=== PATIENT | female | born 1965 | race Caucasian/White ===

== ENCOUNTER → 2018-05-29 07:30 | Outpatient (CLI) | payer OTHER, SELFPAY ==
[2018-05-29 07:51] LABS: Abs Immature Grans 0.01 k/cumm (0.0-0.09); Absolute Basophil Count 0.03 k/cumm (0.0-0.2); Absolute Eosinophil Count 0.16 k/cumm (0.0-0.7); Absolute Monocyte Count 0.53 k/cumm (0.11-0.7); Absolute Neutrophil Count 2.24 k/cumm (1.2-6.7); Basophils % 0.6; Eosinophils % 3.2; HCT 39.9 % (36.0-46.0); HGB 13.5 g/dL (12.0-15.5); Immature Grans % 0.2; Lymphocytes % 41.4; Mean Corp. HGB Concentration 33.8 g/dL (32.0-36.0); Mean Corpuscular Hemoglobin 30.1 pg (27.0-33.0); Mean Corpuscular Volume 89.1 fL (80-95); Mean Platelet Volume 10.6 fL (8.0-11.0); Monocytes % 10.5; Neutrophils % 44.1; Platelet Count 248 x1000/uL (130-400); RBC 4.48 m/cumm (4.00-5.20); RBC Distribution Width 13.2 % (11.7-14.6); White Blood Cell Count 5.07 k/cumm (4.4-10.8)
[2018-05-29 09:12] LABS: ALT 27 U/L (12-78); AST 15 U/L (15-37); Albumin 3.7 g/dL (3.4-5.0); Alkaline Phosphatase 113 U/L (46-116); Anion Gap 6.1 mmol/L (3-11); BUN 15 mg/dL (7-18); Bilirubin, Total 0.3 mg/dL (0.2-1.0); CO2 31.9 mmol/L (21.0-32.0); CREATININE 0.88 mg/dL (0.55-1.02); Calcium 8.8 mg/dL (8.5-10.1); Chloride 106 mmol/L (98-107); Cholesterol 210 mg/dL (50-200); Glucose 94 mg/dL (70-100); HDL Cholesterol 21 mg/dL (40-60); LDL CHOLESTEROL 138 mg/dL (<100); Potassium 4.6 mmol/L (3.5-5.1); Sodium 144 mmol/L (136-145); Total Protein 6.9 g/dL (6.4-8.2); Triglyceride 83 mg/dL (30-150)
== END ==
PROVIDERS: PCP Student in an Organized Health Care Education/Training Program; Visit Provider Student in an Organized Health Care Education/Training Program
DX: E03.9 Hypothyroidism, unspecified (principal); N95.0 Postmenopausal bleeding; R03.0 Elevated blood-pressure reading, without diagnosis of hypertension; Z13.220 Encounter for screening for lipoid disorders
CPT/HCPCS: 36415; 80053; 80061; 83721; 84443; 85025

== ENCOUNTER 2018-09-10 00:26 | Outpatient (CLI) | payer OTHER, SELFPAY ==
--- NOTE | 2018-09-10 16:00 | DI.MAMMO_ITS ---
SYMPTOMS/DIAGNOSIS: SCREENING, Z12.31 MAMMOGRAM: Mammograms were interpreted according to the usual protocol including computer analysis with CAD system, tomosynthesis and C view imaging. The breasts are heterogeneously dense. No dominant mass or clumped microcalcification is identified in either breast. Current examination is compared with the previous examinations including August 2016 and there has been no gross interval change in appearance in comparison with the previous studies. CONCLUSION: No specific evidence of malignancy at this time. Routine screening examinations are suggested at yearly intervals due to the family history of breast carcinoma. Category 1, breast density category C. MQSA ASSESSMENT OF FINDINGS: Negative. Category 1. Patient will receive a letter notifying them of these results. Bi-RADS category C. The breasts are heterogeneously dense, which may obscure small masses.
== END 2018-09-10 00:46 ==
PROVIDERS: PCP Student in an Organized Health Care Education/Training Program; Visit Provider Student in an Organized Health Care Education/Training Program
DX: Z12.31 Encounter for screening mammogram for malignant neoplasm of breast (principal)
CPT/HCPCS: 77063; 77067

== ENCOUNTER 2019-03-07 10:26 | Outpatient (CLI) | payer OTHER, SELFPAY ==
--- NOTE | 2019-03-07 08:50 | DI.RAD_ITS ---
SYMPTOM/DIAGNOSIS: CONT'D COUGH, W/BACK PAIN - ? WALKING PNEUMONIA. M54.9 PA AND LATERAL CHEST: 03/07 The heart is normal in size. The lungs are clear. The mediastinal structures and pleura appear intact. CONCLUSION: Normal chest.
== END 2019-03-07 10:46 ==
PROVIDERS: PCP Student in an Organized Health Care Education/Training Program; Visit Provider Student in an Organized Health Care Education/Training Program
DX: M54.9 Dorsalgia, unspecified (principal); R05 Cough
CPT/HCPCS: 71046

== ENCOUNTER 2019-03-28 01:28 | Outpatient (CLI) | payer OTHER, SELFPAY ==
--- NOTE | 2019-03-28 15:22 | DI.MAMMO_ITS ---
SYMPTOM/DIAGNOSIS: SCREENING, Z12.31, FAMILY H/O BREAST CA MAMMOGRAMS: Mammograms were interpreted according to the usual protocol including computer analysis with CAD system, tomosynthesis and C view imaging. The breasts are heterogeneously dense. No dominant mass or clumped microcalcification is identified in either breast. The current examination is compared with previous examinations including 08/2018 and there has been no gross interval change in appearance in comparison with the previous studies. CONCLUSION: No specific evidence of malignancy at this time. Routine screening examinations examinations are suggested at yearly intervals due to the family history of breast carcinoma. Category 1. Breast density, category C. MQSA ASSESSMENT OF FINDINGS: Negative. Category 1. Patient will receive a letter notifying them of these results. Bi-RADS category C. The breasts are heterogeneously dense, which may obscure small masses.
== END 2019-03-28 01:48 ==
PROVIDERS: PCP Student in an Organized Health Care Education/Training Program; Visit Provider Student in an Organized Health Care Education/Training Program
DX: Z12.31 Encounter for screening mammogram for malignant neoplasm of breast (principal); Z80.3 Family history of malignant neoplasm of breast
CPT/HCPCS: 77063; 77067

== ENCOUNTER 2019-04-15 08:04 | Outpatient (CLI) | payer OTHER, SELFPAY ==
[2019-04-15 10:00] LABS: Anion Gap 7.5 mmol/L (3-11); CO2 28.5 mmol/L (21.0-32.0); CREATININE 0.76 mg/dL (0.55-1.02); Calcium 9.2 mg/dL (8.5-10.1); Calculated LDL 106; Chloride 106 mmol/L (98-107); Cholesterol 162 mg/dL (50-200); Glucose 91 mg/dL (70-100); HDL Cholesterol 44 mg/dL (40-60); Potassium 4.5 mmol/L (3.5-5.1); Sodium 142 mmol/L (136-145); Triglyceride 62 mg/dL (30-150)
[2019-04-15 10:25] LABS: TSH (W/Ref FT4) 0.23 uIU/mL (0.358-3.74)
[2019-04-15 10:48] LABS: FREE T4 1.31 ng/dL (0.76-1.46)
[2019-04-15 15:16] LABS: BUN 20 mg/dL (7-18)
== END 2019-04-15 08:24 ==
PROVIDERS: PCP Student in an Organized Health Care Education/Training Program; Visit Provider Student in an Organized Health Care Education/Training Program
DX: Z13.220 Encounter for screening for lipoid disorders (principal); Z79.1 Long term (current) use of non-steroidal anti-inflammatories (NSAID); E03.9 Hypothyroidism, unspecified
CPT/HCPCS: 36415; 80048; 80061; 83721; 84439; 84443

== ENCOUNTER 2020-03-03 09:04 | Emergency (ER) | payer OTHER, SELFPAY ==
--- NOTE | 2020-03-03 09:06 | W.ED.GENAD ---
Discharge Plan Disposition Patient Disposition: HOME Condition: Good Discharge Details Chief Complaint: Chest Pain Clinical Impression: Chest pain, Iliotibial band tendonitis Primary Care Provider: Lyric Correia ED Provider: Lashae Torres Home Meds and New Rx's Prescriptions: Continued levothyroxine 137 mcg tablet 137 mcg PO DAILY Qty: 90 RF: 3 citalopram 10 mg tablet 10 mg PO DAILY Qty: 90 RF: 3 Discharge Instructions Instructions: Chest Pain (ED), Tendinitis (ED) Additional Instructions: Encourage water intake. Please begin the baby aspirin as discussed. You were labs and imaging are reassuring here today without any evidence of emergent pathology. Please keep your upcoming appoint with your primary care. She is aware of this plan today. Your pain in your right thigh is most consistent with iliotibial band tendinitis, please perform the stretching as discussed. Attached is a referral for physical therapy. If you develop fever/chills, increased pain, shortness of breath and difficulty breathing, increased chest pain or other new/worsening symptom please seek care urgently once again. Stand Alone Forms: Physical Therapy Referral Referrals: Lyric Correia DO [Primary Care Provider] - Medical Decision Making Patient is a pleasant 54-year-old female presenting today with chief complaint of chest pain. She reports that she awoke this morning at 4 AM with substernal chest pain. States the pain was nonradiating and felt like a pressure. She states that it was worse with movement such as going to a sitting position. She denied any shortness of breath, nausea, rating pain. No pain in her back. Denies any GI upset. She has not had pain like this historically. States that the pain lasted approximately 45 minutes and she is able to return to sleep. She states that she subsequently woke again around 630 with similar discomfort. Patient is currently asymptomatic. She denies any cardiac history. Past medical history is significant for melanoma, hypothyroidism, thyroiditis. Patient is currently on levothyroxine and citalopram. Patient states that she has been very sedentary recently. 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 She states that she has not been able to get away from her desk. She is also endorsing right lateral thigh pain. She reports the pain began approximately 1 month ago. States that it can radiate down to the calf. She is not had pain like this previously. She denies any trauma. Denies any numbness or tingling. No history of DVT or clotting disorders. States the pain is worse when she is laying down at night. Patient also reports that she is been having difficulty sleeping associated with increased stress. On exam, the patient is resting comfortably. She has normal cardiac and pulmonary exam. 2+ distal pulses. Abdomen is benign. She does have an area of firmness along the lateral thigh consistent with area of discomfort. She does have a small area of ecchymosis which she states that this was from running into something the other day and came on after the initial discomfort in the thigh. At this time,. History is most concerning for increased stress and fatigue. I have considered thyroid etiologies although patient denies any palpitationson past medical history. ACS is on the differential although patient's heart score is 1 with initial troponin pending. I did consider PE particular the patient's leg discomfort potentially stemming from a DVT. Patient is not tachycardic or hypoxic. She is not had any shortness of breath so I do find PE less likely. She is not had any radiating pain tearing discomfort or persistent discomfort to suggest potential dissection. Considered pulmonary, cardiac, GI source versus other. EKG was reviewed by Dr. Bazzi. Patient is normal sinus rhythm with a rate of 74 with no acute ischemic changes noted. Chest x-ray was reviewed by radiology: FINDINGS: MEDIASTINUM: Normal. HEART: Normal. PULMONARY VASCULATURE: Normal. LUNGS: Clear. PLEURAL SPACE: No pleural effusion or pneumothorax. BONE:Normal. IMPRESSION: No acute pulmonary findings. Labs were reviewed with no acute abnormality noted. D-dimer is within normal limits. No electrolyte abnormalities. Initial troponin is less than 0.05. Will obtain second. TSH within normal limits. US reviewed by radiologist: FINDINGS: The right common femoral, femoral and popliteal veins demonstrate normal compressibility, augmentation, and color Doppler. The posterior tibial veins are patent. No saphenous vein thrombosis or other superficial venous thrombosis is seen. No hematoma or Silva's cyst is seen. Normal appearing groin lymph nodes are seen. IMPRESSION: Negative right lower extremity ultrasound. No evidence of DVT. Repeat troponin remains negative. Patient has f/u appointment on Sunday, will touch base with PCP. I am concerned regarding patients stress and sleep habits. She and I did discuss this. We also discussed daily baby ASA as she has been very sedentary. She has tolerated this well historically so I did recommend that during this time she use this. Patient and I discussed return precautions. I was able to speak with them encouraged to have the patient's primary care physician and expressed my concerns and have that they can have further discussion at her upcoming appointment on Sunday. I reexamined the patient's lower extremity after the DVT study and I am concerned however I discontinue medicine at this time. We will refer to physical therapy. All of her questions or concerns were addressed she is agreement with plan. HPI General Mode of arrival: ambulatory. Date/Time Provider Initiated Documentation: 03/03/20 09:06. Limitations to Documentation: no limitations. Information obtained by: patient and RN notes reviewed. History of Present Illness 54 year old F presents to the emergency department with the chief complaint of chest pain, described as moderate, with intensity rated at 5. Quality is described as other (pressure), and is localized to the chest. Patient reports no radiation. Patient started experiencing this hour(s) (first episode at 0400) and it has been now resolved. Immobilization improves symptom(s), Movement worsens symptoms . Patient notes no other symptoms.. Patient did receive the following treatments prior to arrival, none Related Data Home Medications Medication Instructions Recorded Confirmed levothyroxine 137 mcg tablet 137 mcg PO DAILY #90 tab-cap 03/31/19 03/03/20 citalopram 10 mg tablet 10 mg PO DAILY #90 tab 10/30/19 03/03/20 Previous Rx's Medication Instructions Recorded levothyroxine 137 mcg tablet 137 mcg PO DAILY #90 tab-cap 03/31/19 citalopram 10 mg tablet 10 mg PO DAILY #90 tab 10/30/19 Allergies Allergy/AdvReac Type Severity Reaction Status Date / Time No Known Drug Allergies Allergy Verified 03/03/20 09:15 Review of Systems Constitutional Constitutional: Reports as per HPI, Denies chills, Denies fever(s), Denies headache(s), Denies lethargy and Denies poor appetite Eyes Eyes: Denies change in vision ENT Ears, Nose, Mouth, and Throat: Denies dizziness and Denies headache(s) Cardiovascular Cardiovascular: Reports as per HPI, Denies dyspnea and Denies dyspnea on exertion Respiratory Respiratory: Reports as per HPI, Denies chest congestion, Denies cough, Denies pain on inspiration, Denies pain with cough, Denies dyspnea, Denies dyspnea on exertion and Denies wheezing Gastrointestinal Gastrointestinal: Reports as per HPI, Denies abdominal pain, Denies diarrhea, Denies nausea and Denies vomiting Musculoskeletal Musculoskeletal: Reports as per HPI and Denies back pain Integumentary/Breasts Skin/Breast: Reports as per HPI and Denies rash Neurologic Neurologic: Reports as per HPI, Denies dizziness and Denies headache(s) Allergic/Immunologic Allergic/Immunologic: Denies wheezing [facility] Medical History Depression 2002 Leo's thyroiditis 1991 Surgical History Fracture, Open Treatment 1999 with hardware intact/leg Skin Cancer Removal MELANOMA ON THE ARM Thyroidectomy 1992 secondary to Leo Family History Mother Hyperlipidemia Neoplasm BREAST Father Diabetes Heart disease Grandmother Neoplasm BREAST Maternal Uncle Heart disease Maternal Aunt Neoplasm BREAST Sister No problems noted. Brother No problems noted. Brother No problems noted. Brother No problems noted. Grandfather Stroke Grandfather No problems noted. Grandmother No problems noted. Son No problems noted. Daughter No problems noted. Social History Smoking/Tobacco Use Status: Never Alcohol Intake: current Alcohol Intake frequency: holidays/special occasions only Drug use: Never Substance use type: does not use Housing: house Number of Children: 2 current occupation: Finance at [employer] What type of physical activity do you participate in: none Seatbelt use: always Drive intox or ride w/intox superintendent drivers: No Working smoke detector in home: Yes Fire extinguisher in home: Yes Carbon monox detector in home: Yes Do you feel safe at home: Yes Do you feel safe in your relationship?: Yes Exam Const General: cooperative, healthy appearing, comfortable, no acute distress and well developed Nutritional Appearance: average body habitus and well nourished Orientation: alert, awake and oriented x3 HENMT Head: normal to inspection Ears: hearing grossly normal bilaterally Mouth: moist mucous membranes Chest Chest: normal inspection of the chest, normal palpation of entire chest wall and no crepitus Resp Effort & Inspection: normal respiratory effort, able to speak in complete sentences and no respiratory distress Auscultation: clear to auscultation bilaterally, no rales, no rhonchi and no wheezes Cardio Rate: regular rate Rhythm: regular rhythm Heart Sounds: S1 normal and S2 normal GI Inspection: normal to inspection, no edema and non-distended Palpation: soft, no hepatosplenomegaly, not firm, no guarding, not rigid and nontender Auscultation: normal bowel sounds Back/Spine/Pelvis Back: no CVA tenderness Thoracic/Lumbar Spine: thoracic and lumbar spine normal to inspection Skin General skin exam: no rashes or lesions noted Trauma: no lacerations or abrasions Neuro General: patient alert, patient awake and patient oriented x3 Cognition: normal cognition Speech: speech normal Gait: normal gait Extrem General: normal to inspection, capillary refill normal, no pedal edema, no calf tenderness and normal gait Psych Appearance: grossly normal and well kempt Mental Status: mental status grossly normal Speech and Movement: speech and movement normal
[2020-03-03 09:08] VITALS: BP 178/90; PULSE 85; RESP 16; TEMP 36.8; O2SAT 98
--- NOTE | 2020-03-03 09:15 | DI.RAD_ITS ---
EXAM: XR CHEST 2V PA LATERAL CLINICAL HISTORY: CP TECHNIQUE: 2D digital imaging was performed. COMPARISON: No exams were available for comparison FINDINGS: MEDIASTINUM: Normal. HEART: Normal. PULMONARY VASCULATURE: Normal. LUNGS: Clear. PLEURAL SPACE: No pleural effusion or pneumothorax. BONE:Normal. IMPRESSION: No acute pulmonary findings. DATA REPOSITORY: RADIATION DOSE DELIVERED:
--- NOTE | 2020-03-03 09:30 | DI.US_ITS ---
EXAM: US LOWER EXTREMITY VENOUS RT CLINICAL HISTORY: posterior calf/lateral thigh pain. TECHNIQUE: Right lower extremity venous ultrasound performed using grayscale, color-flow, and spectr al Doppler analysis. COMPARISON: No exams were available for comparison FINDINGS: The right common femoral, femoral and popliteal veins demonstrate normal compressibility, augmentatio n, and color Doppler. The posterior tibial veins are patent. No saphenous vein thrombosis or other s uperficial venous thrombosis is seen. No hematoma or Silva's cyst is seen. Normal appearing groin l ymph nodes are seen. IMPRESSION: Negative right lower extremity ultrasound. No evidence of DVT. DATA REPOSITORY:
[2020-03-03 09:47] LABS: Abs Immature Grans 0.01 k/cumm (0.0-0.09); Absolute Basophil Count 0.05 k/cumm (0.0-0.2); Absolute Lymphocyte Count 2.24 k/cumm (1.2-3.4); Absolute Monocyte Count 0.53 k/cumm (0.11-0.7); Absolute Neutrophil Count 2.09 k/cumm (1.2-6.7); Eosinophils % 3.9; HCT 40.8 % (36.0-46.0); HGB 13.8 g/dL (12.0-15.5); Immature Grans % 0.2 %; Lymphocytes % 43.8; Mean Corp. HGB Concentration 33.8 g/dL (32.0-36.0); Mean Corpuscular Hemoglobin 30.1 pg (27.0-33.0); Mean Corpuscular Volume 89.1 fL (80-95); Mean Platelet Volume 11.4 fL (8.0-11.0); Monocytes % 10.4; Neutrophils % 40.7; Platelet Count 296 x1000/uL (130-400); RBC 4.58 m/cumm (4.00-5.20); RBC Distribution Width 13.4 % (11.7-14.6); White Blood Cell Count 5.12 k/cumm (4.4-10.8)
[2020-03-03 09:57] LABS: ALT 27 U/L (14-59); AST 17 U/L (15-37); Albumin 3.8 g/dL (3.4-5.0); Alkaline Phosphatase 101 U/L (46-116); Anion Gap 9.2 mmol/L (3-11); BUN 16 mg/dL (7-18); Bilirubin, Total 0.3 mg/dL (0.2-1.0); CO2 27.8 mmol/L (21.0-32.0); CREATININE 0.81 mg/dL (0.55-1.02); Chloride 103 mmol/L (98-107); Glucose 93 mg/dL (74-106); Magnesium 1.8 mg/dL (1.8-2.4); Potassium 3.9 mmol/L (3.5-5.1); Sodium 140 mmol/L (136-145); Total Protein 7.5 g/dL (6.4-8.2)
[2020-03-03 10:01] LABS: Troponin I < 0.05 ng/Ml (<0.06)
[2020-03-03 10:03] LABS: PTT Activated 26.7 sec (21.0-31.4); Prothrombin Time 9.8 sec (9.3-11.0)
[2020-03-03 10:28] LABS: D-Dimer 233 ng/mlFEU (<500)
[2020-03-03 11:56] VITALS: BP 154/82; PULSE 60; RESP 18; TEMP 36.4; O2SAT 99
[2020-03-03 12:34] LABS: Troponin I < 0.05 ng/Ml (<0.06)
== END 2020-03-03 12:55 | disposition home or self-care (01) ==
PROVIDERS: Emergency Provider Physician Assistant; PCP Student in an Organized Health Care Education/Training Program
DX: R07.89 Other chest pain (principal); M76.31 Iliotibial band syndrome, right leg; Z73.3 Stress, not elsewhere classified
CPT/HCPCS: 36415; 80053; 93005; 99285; 71046; 83735; 84443; 84484; 85025; 85379; 85610; 85730; 93010; 93971

== ENCOUNTER 2020-03-30 02:27 | Outpatient (CLI) | payer OTHER, SELFPAY ==
--- NOTE | 2020-03-30 06:45 | DI.MAMMO_ITS ---
EXAM: MG MAMMO SCREENING CLINICAL HISTORY: screening,z12.39 TECHNIQUE: Mammograms were interpreted according to the usual protocol including computer analysis w [employer] CAD system, tomosynthesis and C-view imaging. COMPARISON: FINDINGS: The breasts are heterogeneously dense. No dominant mass or clumped microcalcification is identified in either breast. Current examination is compared with previous examinations including February 2019 and there has been no gross interval change in appearance comparison with the previous studies. IMPRESSION: No specific evidence of malignancy at this time. Routine screening examinations are suggested at yea rly intervals due to the family history of breast carcinoma. BI-RADS Cat 1 - Negative: Breast Density - Category C - Heterogeneously dense:
== END 2020-03-30 02:47 ==
PROVIDERS: PCP Student in an Organized Health Care Education/Training Program; Visit Provider Student in an Organized Health Care Education/Training Program
DX: Z12.31 Encounter for screening mammogram for malignant neoplasm of breast (principal); Z80.3 Family history of malignant neoplasm of breast
CPT/HCPCS: 77063; 77067

== ENCOUNTER 2020-10-15 03:52 | Outpatient (CLI) | payer OTHER, SELFPAY ==
--- NOTE | 2020-10-15 06:30 | DI.US_ITS ---
EXAM: US ABDOMEN CLINICAL HISTORY: RUQ PAIN,R10.11 TECHNIQUE: Ultrasound abdomen performed using standard protocol. COMPARISON: No exams were available for comparison FINDINGS: ABDOMINAL AORTA AND IVC: Visualized portions normal caliber. PANCREAS: Normal where visualized. LIVER: Normal. Hepatopedal flow in the Portal Vein. GALLBLADDER: No evidence of cholelithiasis. No evidence of wall thickening. No pericholecystic fluid identified. BILIARY SYSTEM: Common bile duct measures < 7 mm. No intrahepatic biliary ductal dilation. TAYLOR'S SIGN: Negative. KIDNEYS: Kidneys are symmetric in size. No evidence of renal calculi. No evidence of hydronephrosis. No renal mass or cyst identified. SPLEEN: Not enlarged. ASCITES: None seen. IMPRESSION: Normal sonographic appearance of the upper abdomen. DATA REPOSITORY:
== END 2020-10-15 04:12 ==
PROVIDERS: PCP Student in an Organized Health Care Education/Training Program; Visit Provider Student in an Organized Health Care Education/Training Program
DX: R10.11 Right upper quadrant pain (principal)
CPT/HCPCS: 76700

== ENCOUNTER 2021-01-07 09:28 | Outpatient (REF) | payer OTHER, SELFPAY ==
--- NOTE | 2021-01-07 08:40 | PAPFT_PTH ---
PATIENT: Esperanza Emmanuel LOC: [facility] U#:[id number] AGE/SX: 55/F ROOM: RE01/07/[address]: AURA Blakely : 1965 BED: DIS: 01/07/2021 SPEC #: [id number] RECD: 01/07/21 12:57 STATUS: SHINE REQ #: [id number] LILIANA: 01/07/21 08:[address]: Smita Daniel DEPT: [facility] Cytology RECD BY: Emily Zepeda ENTERED: 01/07/21 12:57 SP TYPE: PAPFT OTHR DR: Lyric Correia, DO Tissues: 1 - CX/ENDOCX FOR PAP SMEARS Procedures: PAP THIN PREP/UVM Screening HPV DNA PROBE Comments: [id number]
== END 2021-01-07 09:29 | disposition home or self-care (01) ==
LOC: LBN 09:28
PROVIDERS: PCP Student in an Organized Health Care Education/Training Program; Visit Provider Nurse Practitioner Family
DX: Z12.4 Encounter for screening for malignant neoplasm of cervix (principal); Z11.51 Encounter for screening for human papillomavirus (HPV); R87.810 Cervical high risk human papillomavirus (HPV) DNA test positive
CPT/HCPCS: 88142; 87624

== ENCOUNTER 2021-04-01 03:13 | Outpatient (CLI) | payer OTHER, SELFPAY ==
--- NOTE | 2021-04-01 06:30 | DI.MAMMO_ITS ---
Exam(s) MAMMO SCREENING EXAM: MAMMO SCREENING CLINICAL HISTORY: screening,z12.39 TECHNIQUE: Bilateral full field digital CC and MLO mammographic images were obtained with 3D tomosyn thesis and utilizing computer aided detection (CAD). COMPARISON: Available for comparison. FINDINGS: Masses/Architectural Distortion: None seen. Microcalcifications: No suspicious pleomorphic-type are seen. Skin Thickening/Nipple Retraction: None. IMPRESSION: 1. No significant interval change with no specific features of malignancy noted. 2. Unless there is more urgent need, screening mammography is recommended, as per [employer] guidelines. BI-RADS Category 1 - Negative Breast Density - Category C - Heterogeneously dense Breast density category C or D implies that the patient has dense breast tissue. Dense breast tissue is very common and is not abnormal but dense breast tissue can make it harder to find cancer on a ma mmogram. Also, dense breast tissue may increase their breast cancer risk. This information about the result of the mammogram report was provided to the patient to raise their awareness. Use this report when you speak with the patient about their risks for breast cancer, which includes their family hist ory. At that time, you may recommend for more screening tests (Ultrasound or MRI) as they might be us eful based on their risk. A negative radiographic report should not delay biopsy if a dominant or clinically suspicious mass is present. Up to ten percent of cancers are not identified on mammography. A negative report may reinforce clinical impression. Adenosis and dense breasts may obscure an underlying neoplasm. False positive reports average 6 to 10%. Patient will receive a letter notifying them of these results.
== END 2021-04-01 03:33 ==
PROVIDERS: PCP Student in an Organized Health Care Education/Training Program; Visit Provider Nurse Practitioner Family
DX: Z12.31 Encounter for screening mammogram for malignant neoplasm of breast (principal)
CPT/HCPCS: 77063; 77067

== ENCOUNTER 2021-06-08 03:33 | Outpatient (CLI) | payer OTHER, SELFPAY ==
[2021-06-08 13:55] LABS: TSH (W/Ref FT4) 0.42 uIU/mL (0.36-3.74)
[2021-06-08 19:19] LABS: FREE T4 1.05 ng/dL (0.76-1.46)
== END 2021-06-08 03:34 | disposition home or self-care (01) ==
LOC: LBO 03:33
PROVIDERS: PCP Student in an Organized Health Care Education/Training Program; Visit Provider Student in an Organized Health Care Education/Training Program
DX: E03.9 Hypothyroidism, unspecified (principal)
CPT/HCPCS: 36415; 84439; 84443

== ENCOUNTER 2021-08-02 12:02 | Outpatient (CLI) | payer OTHER, SELFPAY ==
[2021-08-02 14:12] LABS: Abs Immature Grans 0.02 10^3/uL (0.0-0.06); Absolute Basophil Count 0.06 10^3/uL (0.0-0.2); Absolute Eosinophil Count 0.07 10^3/uL (0.0-0.7); Absolute Lymphocyte Count 2.53 10^3/uL (1.2-3.4); Absolute Monocyte Count 0.54 10^3/uL (0.1-0.8); Absolute Neutrophil Count 4.36 10^3/uL (1.2-6.7); Basophils % 0.8; Eosinophils % 0.9; HCT 41.8 % (36.0-46.0); HGB 13.8 g/dL (11.2-15.7); Immature Grans % 0.3; Lymphocytes % 33.4; MCH 29.4 pg (27.0-33.0); MCV 88.9 fL (80-95); MPV 10.6 fL (8.0-11.0); Monocytes % 7.1; Neutrophils % 57.5; Nucleated RBC 0 %; Platelet Count 308 10^3/uL (130-400); RDW 12.2 % (11.7-14.6); RDW-SD 39.8 fL; WBC 7.58 10^3/uL (4.4-10.8)
[2021-08-02 18:17] LABS: ALT 22 U/L (14-59); AST 12 U/L (15-37); Albumin 4.1 g/dL (3.4-5.0); Alkaline Phosphatase 102 U/L (46-116); Anion Gap 4.4 mmol/L (3-11); BUN 12 mg/dL (7-18); Bilirubin, Total 0.3 mg/dL (0.2-1.0); CO2 33.6 mmol/L (21.0-32.0); Calcium 10.2 mg/dL (8.5-10.1); Chloride 105 mmol/L (98-107); Estimated GFR 56.95 (mL/min/1.73m2); Glucose 100 mg/dL (74-106); Lipase 70 U/L (73-393); Potassium 4.2 mmol/L (3.5-5.1); Sodium 143 mmol/L (136-145); Total Protein 7.3 g/dL (6.4-8.2)
[2021-08-02 18:22] LABS: FREE T4 1.01 ng/dL (0.76-1.46)
== END 2021-08-02 12:03 | disposition home or self-care (01) ==
LOC: LBO 12:05
PROVIDERS: PCP Student in an Organized Health Care Education/Training Program; Visit Provider Student in an Organized Health Care Education/Training Program
DX: R11.2 Nausea with vomiting, unspecified; R10.9 Unspecified abdominal pain; K57.32 Diverticulitis of large intestine without perforation or abscess without bleeding; E03.9 Hypothyroidism, unspecified; R79.89 Other specified abnormal findings of blood chemistry
CPT/HCPCS: 36415; 80053; 83690; 84439; 85025

== ENCOUNTER 2021-08-03 13:57 | Outpatient (REF) | payer OTHER, SELFPAY | END 2021-08-03 13:58 | disposition home or self-care (01) | LOC: LBN 13:57 | PROVIDERS: PCP Student in an Organized Health Care Education/Training Program; Visit Provider Surgery | DX: K92.1 Melena (principal) | CPT/HCPCS: 82272 ==

== ENCOUNTER 2021-08-04 02:24 | Outpatient (CLI) | payer OTHER, SELFPAY ==
--- NOTE | 2021-08-04 08:00 | DI.CT_ITS ---
Exam(s) CT ABDOMEN PELVIS W EXAM: CT ABDOMEN PELVIS W CLINICAL HISTORY: r/o rt diverticulitis; evaluate gb/biliary,ruq abd pain,nausea,vomiting, TECHNIQUE: Imaging Protocol: Axial computed tomography images with coronal and sagittal reformatted images were created and reviewed CONTRAST MATERIAL: Intravenous: Omnipaque 350 Contrast volume:100 mL Oral: Yes COMPARISON: No exams were available for comparison FINDINGS: ABDOMEN: Lung Bases: There is a reticular nodular infiltrate in the lateral aspect of the left lower lobe. Liver: Normal density. There is a tiny hypodensity in the left lobe of the liver. It is too small fo r further characterization but likely reflects a small cyst. Portal, Superior Mesenteric, and Splenic Veins: Unremarkable. Gallbladder and Biliary Tract: No radiodense calculus or dilation. Pancreas: Normal density, no abnormal calcifications or inflammatory process. Spleen: Normal. Adrenals: No masses seen. Kidneys: Normal size, contour and axis. No radiodense stones or obstructive uropathy. No masses seen. Abdominal Aorta: Abdominal portion non-dilated. Bowel: No obstruction or bowel wall thickening. No evidence of appendicitis. The sigmoid colon is co llapsed limiting evaluation. Peritoneal Cavity: No ascites, collection or mesenteric inflammatory response. No free air. Lymph Nodes: Within normal limits. Bones: Within normal limits for the patient's age. Soft Tissues: Unremarkable. PELVIS: Bladder: Symmetric distention, no gross wall thickening. Reproductive Organs: Unremarkable as visualized. Lymph Nodes: Within normal limits. Bones: Within normal limits for the patient's age. IMPRESSION: 1. No acute abdominal or pelvic process. 2. Reticular nodular infiltrate in the lateral aspect of the left lower lobe. This may represent an infectious or inflammatory process particularly in atypical etiology. Please correlate with patient' s clinical symptoms. RADIATION DOSE DELIVERED: 1,038.63mGy.cm Total DLP DATA REPOSITORY: All CT scans at this facility are submitted to the National Radiology Data Registry (NRDR) Dose Index Registry (DIR) with the [employer] ([employer]). RADIATION OPTIMIZATION: All CT scans at this facility use at least one of these dose optimization te chniques: automated exposure control; mA and/or kV adjustment per patient size (includes targeted exa ms where dose is matched to clinical indication); or iterative reconstruction.
[2021-08-04] MEDS: Normal Saline - Diluent 50 ML VIAL IV (13:50)
[2021-08-04] MEDS: Normal Saline Flush 10 ML SYR IVP (13:50)
[2021-08-04] MEDS: Omnipaque 350 MG/ML 100 ML BTL IJ (13:50)
[2021-08-04] MEDS: Breeza Beverage 473 ML BTL PO (13:54)
[2021-08-04] MEDS: Omnipaque 350 MG/ML 50 ML BTL PO (13:55)
== END 2021-08-04 02:44 ==
PROVIDERS: PCP Student in an Organized Health Care Education/Training Program; Visit Provider Student in an Organized Health Care Education/Training Program
DX: K59.9 Functional intestinal disorder, unspecified; R10.811 Right upper quadrant abdominal tenderness; R11.2 Nausea with vomiting, unspecified; Z86.010 Personal history of colon polyps; R93.5 Abnormal findings on diagnostic imaging of other abdominal regions, including retroperitoneum
CPT/HCPCS: 74177; J3490; Q9967

== ENCOUNTER 2021-08-29 02:22 | Outpatient (CLI) | payer OTHER, SELFPAY ==
[2021-08-29 11:35] LABS: Source Nasal/Nares
[2021-08-29 16:27] LABS: COVID-19 PCR Negative (Negative)
== END 2021-08-29 02:23 | disposition home or self-care (01) ==
PROVIDERS: PCP Student in an Organized Health Care Education/Training Program; Visit Provider Surgery
DX: Z20.822 Contact with and (suspected) exposure to COVID-19 (principal)
CPT/HCPCS: 87635

== ENCOUNTER 2021-08-31 07:14 | Day surgery (SDC) | payer OTHER, SELFPAY ==
--- NOTE | 2021-08-31 06:40 | ENDO_ITS ---
Date of service: 08/31/21 Time of Service: 08:10 Endoscopy Report DATE OF PROCEDURE: 08/31/21 PRE-OP DIAGNOSIS: RUQ pain, colon cancer screening POST-OP DIAGNOSIS: other (duodenitis, gastritis and esophagitis) PROCEDURE: 1. EGD with biopsies 2. Colonoscopy SURGEON: Cyndee Goldman ANESTHESIA TYPE: General:No Airway (Audrey Davila, FRANCIA) ESTIMATED BLOOD LOSS: 3 PATHOLOGY: other (Duodenal bx, Gastric bx, distal esophagus bx, proximal esophagus polyp) COMPLICATIONS: None DISPOSITION: same day INDICATIONS: Flaco has been experiencing some right upper quadrant/right upper flank pain as well as nausea and vomiting intermittently for the last 15 years. Over the last year and a half it has become more frequent and more intense. She did undergo an ultrasound last year which didn't show any gallbladder pathology. She just had a CAT scan done which didn't show any gallbladder pathology or any other abnormalities that would explain her symptoms. On examination she is tender in the right upper quadrant right around where the gallbladder would be. She is also having burping and the Carafate did seem to help her symptoms. Differential includes gastritis, gastric ulcers, peptic ulcer disease or biliary dyskinesia. As she is due for colonoscopy as well I recommend restart with an upper endoscopy at the time of her colonoscopy. If the upper endoscopy is normal then I will order a HIDA scan to look for biliary dyskinesia. The procedures were explained to Flaco and she wishes to proceed. Risks, benefits and complications have been reviewed. Complications include but are not limited to bleeding, pain, perforation, sore throat, aspiration, and adverse reaction to the medications. Questions were entertained and answered to their satisfaction and they wished to proceed. No guarantees were given or implied. PREP: Miralax/Dulcolax PROCEDURE START TIME: 08:10 PROCEDURE END TIME: 08:40 COLONOSCOPY RETRACTION TIME: 10 minutes FINDINGS: Inflammation of the duodenum, stomach and esophagus. Esophageal polyp PROCEDURE DESCRIPTION: After informed consent was obtained the patient was take to the procedure room and placed in a supine position. Monitors were applied and a time out was done. The patients name, date of , procedure type, allergies to medications and metal in their body was reviewed. A bite block was placed and the patient was sedated. Once sedated and comfortable the gastroscope was advanced through the oropharynx which was grossly normal into the esophagus. In the proximal esophagus there was a polyp noted that was removed with cold forceps. The mid- esophagus was normal. In the distal esophagus there was inflammation noted. There was normal peristalsis noted. The scope was advanced into the stomach and through the pylorus into the 3rd portion of the duodenum. The duodenum was noted to be inflammed. Biopsies were done. The scope was retracted back into the stomach. There was moderate inflammation noted in the antrum and body. Biopsies were done to rule out H. pylori. The scope was retro-flexed. The cardia and fundus were noted to be normal. There was no hiatal hernia noted. The scope was retracted back into the esophagus and biopsies were done of the GE junction to rule out Mattson's. The Z line was irregular with 2 areas of barretts about 1 cm in length. The GE junction was at 36 cm. While the patient was still sedated they were placed in a left decubitous position. A rectal exam was done. External exam was normal. Internal exam revealed a slightly decreased sphincter tone and no palpable masses. The scope was then introduced and retro-flexed. No internal hemorrhoids, masses or polyps were identified on retroflexion. The scope was then advanced to the cecum without difficulty. The ileocecal valve and appendiceal orifice were identified. The prep was good. The scope was then slowly retracted over 10 minutes back into the rectum. There were no polyps and no diverticula. The scope was removed and the patient was woken up and taken back to Same day surgery in stable condition. The patient tolerated the procedure well and there were no immediate complications. Follow up: in the office in 2 weeks
--- NOTE | 2021-08-31 06:41 | PDOC.DSDIS_ITS ---
Discharge Plan Disposition Patient Disposition: HOME Condition: Good Discharge Details Reason For Visit: Colonoscopy/egd Attending Provider: Cyndee Goldman Primary Care Provider: Lyric Correia Home Meds and New Rx's Prescriptions: New omeprazole 40 mg capsule,delayed release(DR/EC) 40 mg PO BID Qty: 60 RF: 0 Continued ibuprofen [IBU] 600 mg tablet 600 mg PO TID PRN (Reason: pain, inflammation) Qty: 90 RF: 1 sucralfate 100 mg/mL suspension 10 ml PO QACHS Qty: 200 RF: 1 lisinopril 20 mg tablet 20 mg PO DAILY Qty: 90 RF: 3 levothyroxine 137 mcg tablet 137 mcg PO DAILY Qty: 90 RF: 3 citalopram 10 mg tablet 10 mg PO DAILY Qty: 90 RF: 3 polyethylene glycol 3350 [Miralax] 17 gram/dose Powder 17 g PO DAILY RF: 0 Discharge Instructions Instructions: Diet for Stomach Ulcers and Gastritis (ED), Duodenitis (DC), Gastritis (DC), Esophagitis (DC) Additional Instructions: Findings: Inflammation of the duodenum, stomach and esophagus normal colon Follow up: in the office Please call if you develop: fevers >101.5 Nausea or Vomiting Abdominal pain that is not transient Rectal bleeding that is more then a tbsp A hard abdomen and inability to pass gas DAY SURGERY UNIT POST ENDOSCOPY INSTRUCTIONS Instructions for everyone who is given Anesthesia: For your safety, please do the following for the next 24 Hours: a. Do not drive or operate dangerous equipment b. Do not drink alcohol beverages or use any recreational drugs for the first 24 hours or while taking pain medications. The medications in your body may have a reaction that can be dangerous. c. Do not make any important decisions or sign any important papers 1. Generally there are no restrictions on your activity after a day or so has gone by, but you may feel a bit fatigued for a few days. 2. After you arrive home you may have a light meal and return to a normal diet as you can tolerate it without feeling sick to your stomach. 3. After surgery, you may feel pain or discomfort. This should be only transient, but if it persists please contact your doctor. 4. If there are any questions regarding the findings of your procedure, please feel free to contact your doctor. 6. If you are unable to contact your doctor with a problem, contact the hospital at [phone]. 8. Continue all your regular medications unless directed otherwise. I understand the above instructions and have no questions. Signature of Patient or Responsible Adult Escort Date/Time Name of Responsible Adult Escort Signature of Nurse Date/Time Referrals: Cyndee Goldman MD [ [facility] STAFF PHYSICIAN] - 09/13/21 2:30 pm Activity:: Activity as Tolerated Diet:: low acid Discharge Orders Discharge Orders: Discharge Order (Routine); Ordered 08/31/21 Ordered By: Cyndee Goldman
[2021-08-31 07:34] VITALS: BP 118/88; PULSE 66; RESP 16; TEMP 36.4; O2SAT 97
--- NOTE | 2021-08-31 07:40 | ANES.PREOP_ITS ---
General Info Date of Service Date Performed: 08/31/21 Height: 5 ft 8 in Weight: 90.2 kg Body Mass Index (BMI): 30.2 Surgical Procedure: Operation Date: 08/31/21 08:35 Proposed Procedures Side Surgeon p Colonoscopy/Gastroscopy Cyndee Goldman MD Meds Allergies and Home Medications Allergies Allergy/AdvReac Type Severity Reaction Status Date / Time No Known Drug Allergies Allergy Verified 08/31/21 07:22 Home Medication Medication Instructions Recorded ibuprofen 600 mg tablet 600 mg PO TID PRN #90 tab 03/05/20 citalopram 10 mg tablet 10 mg PO DAILY #90 tab 08/02/21 levothyroxine 137 mcg tablet 137 mcg PO DAILY #90 tab-cap 08/02/21 lisinopril 20 mg tablet 20 mg PO DAILY #90 tab 08/02/21 sucralfate 100 mg/mL oral 10 ml PO QACHS #200 ml 08/02/21 suspension polyethylene glycol 3350 [Miralax] 17 g PO DAILY 08/31/21 Current Visit Medications: Current Medications Generic Name Dose Route Start Last Admin Trade Name Freq PRN Reason Stop Dose Admin Hyoscyamine Sulfate 0.125 mg 08/31/21 06:42 Hyoscyamine 0.125 Mg Sl/Oral/Chew SL DIRECTED PRN Ringer's Solution 1,000 mls @ 80 mls/hr 08/31/21 06:00 IV 09/27/21 23:59 INFUSION [facility] IV Miscellaneous Supplies 1 each 08/31/21 06:00 Iv Access IV 09/27/21 23:59 DIRECTED [place] Ondansetron HCl 4 mg 08/31/21 06:42 Ondansetron 4 Mg/2 Ml Vial IVP Q4H PRN PRN Nausea / Vomiting Sodium Chloride 0 ml 08/31/21 06:00 Normal Saline Flush 10 Ml Syr IV 09/27/21 23:59 PRN PRN Sodium Chloride 0 ml 08/31/21 06:00 Normal Saline 10 Ml Vial IJ 09/27/21 23:59 DIRECTED PRN Sterile Water 0 ml 08/31/21 06:00 Water,Injection,Sterile 10 Ml Vial IJ 09/27/21 23:59 DIRECTED PRN PFSH Active Problems Active Problems: Problem Status Onset Code Abnormal finding on imaging R93.89 Right-sided abdominal pain of unknown etiology R10.9 Black tarry stools K92.1 Hx of colonic polyp Z86.010 Intertrigo L30.4 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 abn finding of left lunf (. Reticular nodular infiltrate in the lateral aspect of the left lower lobe. This may represent an infectious or inflammatory process particularly in atypical etiology. Please correlate with patient's clinical symptoms.) Black tarry stools Depression 2002 Leo's thyroiditis 1991 HPV (human papilloma virus) infection Hx of colonic polyp Hypertension Numerous episodes of elevated BP; Mo has HTN; Starting lisinopril 02/2020 Right-sided abdominal pain of unknown etiology Hx RUQ w/ NEH US ( RUQ discomfort Intermittent through the year, often assoc w/ back pain (T5/6 level est).. w/o clear assoc to diet. [ ] US @ time of symptoms Surgical History Surgical History Fracture, Open Treatment 1999 with hardware intact/leg Skin Cancer Removal MELANOMA ON THE ARM Thyroidectomy 1992 secondary to Leo Tobacco Smoking/Tobacco Use Status: Never Alcohol Alcohol Intake: current Alcohol intake frequency: holidays/special occasions only Substance Use Substance use: Never Substance use type: does not use Vital Signs and Lab Results Vital Signs Most Recent Vital Signs in EMR: Most Recent Vital Signs Temp Pulse Resp BP Pulse Ox 36.4 C L 66 16 118/88 97 08/31/21 07:34 08/31/21 07:34 08/31/21 07:34 08/31/21 07:34 08/31/21 07:34 Lab Results Blood Type / Crossmatch: No Data to Display Complete Blood Count: White Blood Count 7.58 10^3/uL (4.4-10.8) 08/02/21 14:00 08/02/21 Red Blood Count 4.70 10^6/uL (3.93-5.22) 08/02/21 14:00 08/02/21 Hemoglobin 13.8 g/dL (11.2-15.7) 08/02/21 14:00 08/02/21 Hematocrit 41.8 % (36.0-46.0) 08/02/21 14:00 08/02/21 Platelet Count 308 10^3/uL (130-400) 08/02/21 14:00 08/02/21 Complete Metabolic Panel: 2 Sodium Level 143 mmol/L (136-145) 08/02/21 14:00 08/02/21 Potassium Level 4.2 mmol/L (3.5-5.1) 08/02/21 14:00 08/02/21 Chloride Level 105 mmol/L (98-107) 08/02/21 14:00 08/02/21 Carbon Dioxide Level 33.6 mmol/L (21.0-32.0) H 08/02/21 14:00 08/02/21 Blood Urea Nitrogen 12 mg/dL (7-18) 08/02/21 14:00 08/02/21 Creatinine 1.0 mg/dL (0.55-1.02) 08/02/21 14:00 08/02/21 Estimated GFR/1.73 m2 56.95 (mL/min/1.73m2) 08/02/21 14:00 08/02/21 Calcium Level 10.2 mg/dL (8.5-10.1) H 08/02/21 14:00 08/02/21 Albumin 4.1 g/dL (3.4-5.0) 08/02/21 14:00 08/02/21 Glucose Level 100 mg/dL (74-106) 08/02/21 14:00 08/02/21 Liver Function Panel: Alanine Aminotransferase (ALT/SGPT) 22 U/L (14-59) 08/02/21 14:00 08/02/21 Aspartate Amino Transf (AST/SGOT) 12 U/L (15-37) L 08/02/21 14:00 08/02/21 Coagulation Panel: No Data to Display Cardiac Panel: No Data to Display Arterial Blood Gas: No Data to Display Venous Blood Gas: No Data to Display Pancreas Panel: Lipase 70 U/L (73-393) 08/02/21 14:00 08/02/21 Thyroid Panel: No Data to Display Infectious Disease: Coronavirus (COVID-19)(PCR) Negative (Negative) 08/29/21 08:55 08/29/21 Coronavirus 2019 Source Nasal/Nares 08/29/21 08:55 08/29/21 Blood Cultures: No Data to Display Toxicology Panel: No Data to Display Anesthesia Assessment and Plan Anesthesia History Personal History: No History of Anesthesia Complications Family History: No Family History of Anesthesia Complications Exercise Tolerance Exercise Tolerance: Metabolic Equivalents>4 Pertinent Negatives Pertinent Negatives: No Symptoms of GERD, No Major Cardiovascular Symptoms or Complaints, No Major Pulmonary Symptoms or Complaints and No History of CVA/TIA Cardiac & Pulmonary Exam Cardiac Exam: Normal S1/S2 Heart Sounds Pulmonary Exam: Clear Bilateral Breath Sounds Airway Exam Known Difficult Airway: No Mallampati Class: 3 Mouth Opening: Normal (> 3cm) Thyromental Distance: Greater than 3 cm Neck Range of Motion: Full ROM Neck Circumference: Normal Teeth Condition: Normal Dentition ASA Classification ASA Score: ASA 2 Emergency Case?: No NPO Status NPO Status: NPO Clears >2 hours, Solids >8 hours Anesthesia Plan Resuscitation Status: Full Code Anesthesia Technique: General Anesthesia Airway Planned: Natural Airway Monitors Used: Standard Monitors
[2021-08-31] MEDS: Lactated Ringers 1,000 ML 80 ML IV (07:48)
[2021-08-31 07:58] VITALS: BMI 30.2
--- NOTE | 2021-08-31 08:14 | ESO_PTH ---
PATIENT: Esperanza Emmanuel LOC: [facility] U#:[id number] AGE/SX: 56/F ROOM: RE08/31/[address]: Cyndee Goldman MD : 1965 BED: DIS: 08/31/2021 SPEC #: [id number] RECD: 08/31/21 12:38 STATUS: SHINE REQ #: [id number] LILIANA: 08/31/21 08:[address]: Cyndee Goldman DEPT: Surgical Specimen RECD BY: Emily Zepeda ENTERED: 08/31/21 12:40 SP TYPE: Eso JENNIFER DR: Lyric Correia DO Tissues: 1 - BIOPSY BOWEL 2 - STOMACH BIOPSY 3 - ESOPHAGUS BIOPSY 4 - ESOPHAGUS BIOPSY Procedures: GROSS AND MICRO LEVEL 4 Comments: [id number]
[2021-08-31 08:48] VITALS: BP 113/82; PULSE 57; RESP 16; TEMP 36.3; O2SAT 96
[2021-08-31 09:19] VITALS: BP 140/89; PULSE 55; RESP 18; TEMP 36.3; O2SAT 98
--- NOTE | 2021-08-31 09:22 | W.ANESPOSTOP ---
Postoperative Evaluation Date, Time and Location Date Performed: 08/31/21 Time Performed: 08:49 Patient Location: Day Surgery Unit Vital Signs Most Recent Imported Vital Signs: Most Recent Vital Signs Temp Pulse Resp BP Pulse Ox 36.3 C L 57 L 16 113/82 96 08/31/21 08:48 08/31/21 08:48 08/31/21 08:48 08/31/21 08:48 08/31/21 08:48 Pain Score Most Recent Pain Score: Most Recent Pain Score Pain Level 0 08/31/21 08:48 Assessment Mental Status: Awake (Alert & Oriented to Patient Baseline) Airway and Respiratory Function: Patent airway with normal (patient baseline) respiratory exam Cardiovascular Function: Hemodynamically Stable Hydration Status: Adequately Hydrated Nausea & Vomiting: No Nausea or Vomiting Pain: Pt. Denies Any Pain Peripheral Nerve Block: Patient did not receive a nerve block
== END 2021-08-31 09:50 | disposition home or self-care (01) ==
LOC: SUR 07:15
PROVIDERS: PCP Student in an Organized Health Care Education/Training Program; Visit Provider Surgery
PROC: (CPT 43239; principal; 2021-08-31 08:30)
DX: K29.50 Unspecified chronic gastritis without bleeding (principal); B96.81 Helicobacter pylori [H. pylori] as the cause of diseases classified elsewhere; E89.0 Postprocedural hypothyroidism; I10 Essential (primary) hypertension; F32.A Depression, unspecified; Z86.010 Personal history of colon polyps; D13.0 Benign neoplasm of esophagus; K21.00 Gastro-esophageal reflux disease with esophagitis, without bleeding; K29.80 Duodenitis without bleeding
CPT/HCPCS: 43239; 88305; J2001; J2405

== ENCOUNTER 2022-07-05 16:07 | Outpatient (CLI) | payer OTHER, SELFPAY ==
[2022-07-05 17:32] LABS: Anion Gap 6.2 mmol/L (3-11); BUN 14 mg/dL (7-18); CO2 30.8 mmol/L (21.0-32.0); CREATININE 0.7 mg/dL (0.55-1.02); Calcium 9.7 mg/dL (8.5-10.1); Calculated LDL 124 mg/dL (<100); Chloride 102 mmol/L (98-107); Cholesterol 215 mg/dL (<200); Estimated GFR 99.57 (mL/min/1.73m2); Glucose 97 mg/dL (74-106); HDL Cholesterol 47 mg/dL (40-60); Potassium 4.1 mmol/L (3.5-5.1); Sodium 139 mmol/L (136-145); TSH (W/Ref FT4) 0.11 uIU/mL (0.36-3.74); Triglyceride 221 mg/dL (<150)
[2022-07-05 17:52] LABS: FREE T4 1.08 ng/dL (0.76-1.46)
== END 2022-07-05 16:08 | disposition home or self-care (01) ==
LOC: LBO 16:09
PROVIDERS: PCP Student in an Organized Health Care Education/Training Program; Visit Provider Student in an Organized Health Care Education/Training Program
DX: E03.9 Hypothyroidism, unspecified (principal); E87.8 Other disorders of electrolyte and fluid balance, not elsewhere classified; Z13.220 Encounter for screening for lipoid disorders
CPT/HCPCS: 36415; 80048; 80061; 84439; 84443

== ENCOUNTER → 2022-08-10 02:01 | Outpatient (CLI) | payer OTHER, SELFPAY ==
--- NOTE | 2022-08-10 06:45 | DI.US_ITS ---
Exam(s) US CHEST EXAM: US CHEST CLINICAL HISTORY: evaluate upper mid/left chest area fullness R59.9 ENLARGED LYMPH NODES TECHNIQUE: Ultrasound performed using standard protocol. COMPARISON: No exams were available for comparison FINDINGS: The left upper chest and the left axilla were evaluated sonographically. No cystic or solid masses a re seen sonographically. IMPRESSION: Negative ultrasound. DATA REPOSITORY:
--- NOTE | 2022-08-10 06:45 | DI.US_ITS ---
Exam(s) US SOFT TISSUE HEAD OR NECK EXAM: US SOFT TISSUE HEAD OR NECK CLINICAL HISTORY: evaluate tightness, fullness of distal neck R59.9 ENLARGED LYMPH NODES. TECHNIQUE: Ultrasound was performed using standard protocol. COMPARISON: No exams were available for comparison FINDINGS: Sonographic assessment utilizing grayscale and color Doppler imaging was performed and targeted to th e area of clinical concern. The patient is status post complete thyroidectomy. No residual soft tissue seen sonographically in t he thyroid bed. Sonographically benign-appearing lymph nodes are seen in the neck. The largest leanna ures 1.3 x 1.1 x 0.5 cm. IMPRESSION: Status post thyroidectomy. Otherwise unremarkable ultrasound. DATA REPOSITORY:
--- NOTE | 2022-08-10 06:45 | DI.RAD_ITS ---
Exam(s) XR CHEST 2V PA LATERAL EXAM: XR CHEST 2V PA LATERAL CLINICAL HISTORY: evaluate for lymphadenopathy R59.9 ENLARGED LYMPH NODES TECHNIQUE: 2D digital imaging was performed of the chest. Two images were obtained. PA and lateral views were obtained. COMPARISON: CR XR CHEST 2V PA LATERAL from 03/03/2020 FINDINGS: MEDIASTINUM: Normal. HEART: Normal. PULMONARY VASCULATURE: Normal. LUNGS: Clear. PLEURAL SPACE: No pleural effusion or pneumothorax. BONE:Within normal limits for the patient's age. OTHER FINDINGS:Normal. IMPRESSION: No acute pulmonary findings. DATA REPOSITORY: RADIATION DOSE DELIVERED:
== END ==
PROVIDERS: PCP Student in an Organized Health Care Education/Training Program; Visit Provider Student in an Organized Health Care Education/Training Program
DX: R59.9 Enlarged lymph nodes, unspecified (principal); Z98.890 Other specified postprocedural states
CPT/HCPCS: 76536; 71046; 76604

== ENCOUNTER 2022-12-19 02:05 | Outpatient (CLI) | payer OTHER, SELFPAY ==
[2022-12-19 17:52] LABS: Anion Gap 8.2 mmol/L (3-11); BUN 19 mg/dL (7-18); CO2 29.8 mmol/L (21.0-32.0); CREATININE 0.9 mg/dL (0.55-1.02); Calcium 10.3 mg/dL (8.5-10.1); Calculated LDL 155 mg/dL (<100); Chloride 102 mmol/L (98-107); Cholesterol 244 mg/dL (<200); Estimated GFR 73.64 (mL/min/1.73m2); Glucose 88 mg/dL (74-106); HDL Cholesterol 60 mg/dL (40-60); Magnesium 1.8 mg/dL (1.8-2.4); Potassium 4.5 mmol/L (3.5-5.1); Sodium 140 mmol/L (136-145); TSH (W/Ref FT4) 0.08 uIU/mL (0.36-3.74); Triglyceride 146 mg/dL (<150)
[2022-12-19 18:05] LABS: Vitamin D 25 Total 14.3 ng/mL (30-100)
[2022-12-19 18:15] LABS: FREE T4 1.13 ng/dL (0.76-1.46)
== END 2022-12-19 02:06 | disposition home or self-care (01) ==
LOC: LBO 02:05
PROVIDERS: PCP Student in an Organized Health Care Education/Training Program; Visit Provider Student in an Organized Health Care Education/Training Program
DX: A04.8 Other specified bacterial intestinal infections (principal); E03.9 Hypothyroidism, unspecified; I10 Essential (primary) hypertension; K90.9 Intestinal malabsorption, unspecified; R79.89 Other specified abnormal findings of blood chemistry
CPT/HCPCS: 36415; 80048; 80061; 82306; 83735; 84439; 84443

== ENCOUNTER 2023-01-02 16:03 | Outpatient (REF) | payer OTHER, SELFPAY ==
--- NOTE | 2023-01-02 13:15 | PAPFT_PTH ---
PATIENT: Esperanza Emmanuel LOC: [place] U#:[id number] AGE/SX: 57/F ROOM: RE01/02/[address]: Monica Govea DO : 1965 BED: DIS: 01/02/2023 SPEC #: [id number] RECD: 01/02/23 17:11 STATUS: SHINE REQ #: [id number] LILIANA: 01/02/23 13:[address]: Monica Govea DEPT: [facility] Cytology RECD BY: Emily Zepeda ENTERED: 01/02/23 17:11 SP TYPE: PAPFT OTHR DR: Lyric Correia DO Tissues: 1 - CX/ENDOCX FOR PAP SMEARS Procedures: PAP THIN PREP/UVM Screening HPV DNA PROBE Comments: [id number]
== END 2023-01-02 16:04 | disposition home or self-care (01) ==
LOC: LBN 16:03
PROVIDERS: PCP Student in an Organized Health Care Education/Training Program; Visit Provider Obstetrics & Gynecology
DX: Z12.4 Encounter for screening for malignant neoplasm of cervix (principal); Z11.51 Encounter for screening for human papillomavirus (HPV)
CPT/HCPCS: 88142; 87624

== ENCOUNTER 2023-01-10 01:40 | Outpatient (CLI) | payer OTHER, SELFPAY ==
--- NOTE | 2023-01-10 07:15 | DI.MAMMO_ITS ---
Exam(s) MAMMO SCREENING EXAM: MAMMO SCREENING CLINICAL HISTORY: screening,z12.39 TECHNIQUE: Bilateral full field digital CC and MLO mammographic images were obtained with 3D tomosyn thesis and utilizing computer aided detection (CAD). COMPARISON: Available for comparison. FINDINGS: Masses/Architectural Distortion: None seen. Microcalcifications: No suspicious pleomorphic-type are seen. Skin Thickening/Nipple Retraction: None. IMPRESSION: 1. No significant interval change with no specific features of malignancy noted. 2. Unless there is more urgent need, screening mammography is recommended, as per [employer] guidelines. BI-RADS Category 1 - Negative Breast Density - Category C - Heterogeneously dense Breast density category C or D implies that the patient has dense breast tissue. Dense breast tissue is very common and is not abnormal but dense breast tissue can make it harder to find cancer on a ma mmogram. Also, dense breast tissue may increase their breast cancer risk. This information about the result of the mammogram report was provided to the patient to raise their awareness. Use this report when you speak with the patient about their risks for breast cancer, which includes their family hist ory. At that time, you may recommend for more screening tests (Ultrasound or MRI) as they might be us eful based on their risk. A negative radiographic report should not delay biopsy if a dominant or clinically suspicious mass is present. Up to ten percent of cancers are not identified on mammography. A negative report may reinforce clinical impression. Adenosis and dense breasts may obscure an underlying neoplasm. False positive reports average 6 to 10%. Patient will receive a letter notifying them of these results.
== END 2023-01-10 02:00 ==
LOC: DI 01:40
PROVIDERS: PCP Student in an Organized Health Care Education/Training Program; Visit Provider Obstetrics & Gynecology
DX: Z12.31 Encounter for screening mammogram for malignant neoplasm of breast (principal)
CPT/HCPCS: 77063; 77067

== ENCOUNTER 2023-04-23 16:09 | Outpatient (CLI) | payer OTHER, SELFPAY ==
[2023-04-23 16:55] LABS: TSH (W/Ref FT4) 0.27 uIU/mL (0.36-3.74)
[2023-04-23 17:11] LABS: FREE T4 1.01 ng/dL (0.76-1.46)
== END 2023-04-23 16:10 | disposition home or self-care (01) ==
LOC: LBO 16:09
PROVIDERS: PCP Student in an Organized Health Care Education/Training Program; Visit Provider Student in an Organized Health Care Education/Training Program
DX: E03.9 Hypothyroidism, unspecified (principal); R94.6 Abnormal results of thyroid function studies
CPT/HCPCS: 36415; 84439; 84443

== ENCOUNTER 2024-03-17 12:10 | Outpatient (CLI) | payer BC, SELFPAY ==
[2024-03-17 13:33] LABS: Anion Gap 7.8 mmol/L (3-11); BUN 14 mg/dL (7-18); CO2 29.2 mmol/L (21.0-32.0); CREATININE 0.8 mg/dL (0.55-1.02); Calculated LDL 136 mg/dL (<100); Chloride 102 mmol/L (98-107); Cholesterol 225 mg/dL (<200); Glucose 90 mg/dL (74-106); HDL Cholesterol 62 mg/dL (40-60); Potassium 4.1 mmol/L (3.5-5.1); Sodium 139 mmol/L (136-145); TSH (W/Ref FT4) 0.73 uIU/mL (0.36-3.74); Triglyceride 135 mg/dL (<150)
[2024-03-17 13:39] LABS: Vitamin D 25 Total 21.4 ng/mL (30-100)
[2024-03-24 23:54] LABS: Lab Add On Test DONE
== END 2024-03-17 12:11 | disposition home or self-care (01) ==
LOC: LBO 12:11
PROVIDERS: PCP Student in an Organized Health Care Education/Training Program; Visit Provider Student in an Organized Health Care Education/Training Program
DX: E03.9 Hypothyroidism, unspecified (principal); K90.9 Intestinal malabsorption, unspecified; R79.89 Other specified abnormal findings of blood chemistry; Z91.89 Other specified personal risk factors, not elsewhere classified; Z13.220 Encounter for screening for lipoid disorders
CPT/HCPCS: 36415; 80048; 80061; 82306; 84439; 84443

== ENCOUNTER → 2024-04-09 00:12 | Outpatient (CLI) | payer BC, SELFPAY ==
--- NOTE | 2024-04-09 07:45 | DI.MAMMO_ITS ---
Exam(s) MAMMO SCREENING EXAM: MAMMO SCREENING CLINICAL HISTORY: screening. TECHNIQUE: Bilateral full field digital CC and MLO mammographic images were obtained with 3D tomosyn thesis and utilizing computer aided detection (CAD). COMPARISON: Prior mammograms were reviewed. FINDINGS: No new significant findings in left breast. In the medial aspect of the right breast there is an asymmetric density which has been stable appeara nce over numerous prior mammograms but presently exhibits a few new internal calcifications.. This d ensity measures 1.4 x 0.8 cm and is located approximately 10 cm in from the nipple, medial of center. Further imaging recommended. Follow view there is an asymmetric density with similar measurement located 5.5 cm in from the nipple . Also requires spot compression view. There is no significant architectural distortion nor skin thickening-retraction. IMPRESSION: 1. No radiographic evidence of malignancy in the left breast. 2. Findings in the right breast as described above which require further imaging including spot compr ession views and ultrasound. BI-RADS Category 0 - Assessment Incomplete: Need additional imaging evaluation Breast Density - Category C - Heterogeneously dense Breast density Category C or D implies that the patient has dense breast tissue. Dense breast tissue can make it harder to find cancer on a mammogram. Dense breast tissue is also associated with an incr eased risk of breast cancer. This information about the result of the mammogram report was provided to the patient to raise their awareness. Use this report when you speak with the patient about their risks for breast cancer, which includes their family history. At that time, you may recommend additional screening tests (Ultrasoun d or MRI) as these tests may add significant information. A negative radiographic report should not delay biopsy if a dominant or clinically suspicious mass is present. Up to ten percent of cancers are not identified on mammography. A negative report may reinforce clinical impression. Adenosis and dense breasts may obscure an underlying neoplasm. False positive reports average 6 to 10%. Patient will receive a letter notifying them of these results.
== END ==
PROVIDERS: PCP Student in an Organized Health Care Education/Training Program; Visit Provider Obstetrics & Gynecology
DX: Z12.31 Encounter for screening mammogram for malignant neoplasm of breast (principal)
CPT/HCPCS: 77063; 77067

== ENCOUNTER → 2024-04-15 03:23 | Outpatient (CLI) | payer BC, SELFPAY ==
--- NOTE | 2024-04-15 | DI.MAMMO_ITS ---
Exam(s) MG MAMMO SCREEN CALL BACK UNI US BREAST RT COMPLETE EXAM: MG MAMMO SCREEN CALL BACK UNI-RIGHT AND COMPLETE RIGHT BREAST ULTRASOUND CLINICAL HISTORY: F/U MAMMO, RT ASYMMETRIC DENSITY AND INTERNAL CALCIFICATIONS. TECHNIQUE: Unilateral RIGHT BREAST spot mammographic images obtained with 3D tomosynthesisand utiliz ing computer aided detection (CAD). . Complete RIGHT breast Ultrasound was also performed, including all 4 quadrants, the retroareolar key on, and the ipsilateral axilla. COMPARISON: Prior mammograms were reviewed. This additional imaging was performed due to findings described on the recent screening mammogram of 04/09/2024. FINDINGS: DIAGNOSTIC MAMMOGRAM: Additional mammographic views performed todaydo not dissipate the more posterior of the 2 findings on the mammogram. This, however, is not seen on ultrasound and probably just asymmetric tissue. Never theless, it has been present on numerous prior mammograms and is not increased in size. It is most p robably just asymmetric tissue and not a fibroadenoma (given its absence of visualization on ultrasou nd) The 2nd area which is 5 cm in from the nipple on the MLO view is equivocal on spot compression view w ith does correspond to findings described below on the ultrasound. COMPLETE RIGHT BREAST ULTRASOUND: Ultrasound performed today reveals no focal finding to correspond to the finding described 7 cm in fr om the nipple on the CC mammogram view and therefore is most probably just benign asymmetric tissue w hich contains a few benign-appearing microcalcifications on the mammogram. At the 8 o'clock position there is a wider than taller area of what appears to be ducts with total le ngth measurement of 2 cm and maximum duct thickness of 0.4 mm. Adjacent to it is a 5 x 4 mm oval nod ular density with slightly increased through transmission. This is probably part of the same ductal system. There is no decreased through transmission associated with this area. There are no other focal findings in all 4 quadrants Scanning of the ipsilateral axilla reveals no significant adenopathy. IMPRESSION: 1. Finding at the 8 o'clock position on ultrasound as described above which should undergo repeat ul trasound in 6 months to ensure stability. This corresponds to an area of relatively dense tissue on the mammogram. 2. Also recommend repeat right breast mammogram in 6 months. The patient was informed of these findings and recommendations by myself prior to leaving the departm ent today. BI-RADS Category 3 - 6 month - Probably Benign Finding: Recommend follow-up mammography in 6 months Breast Density - Category C - Heterogeneously dense Breast density Category C or D implies that the patient has dense breast tissue. Dense breast tissue can make it harder to find cancer on a mammogram. Dense breast tissue is also associated with an incr eased risk of breast cancer. This information about the result of the mammogram report was provided to the patient to raise their awareness. Use this report when you speak with the patient about their risks for breast cancer, which includes their family history. At that time, you may recommend additional screening tests (Ultrasoun d or MRI) as these tests may add significant information. A negative radiographic report should not delay biopsy if a dominant or clinically suspicious mass is present. Up to ten percent of cancers are not identified on mammography. A negative report may reinforce clinical impression. Adenosis and dense breasts may obscure an underlying neoplasm. False positive reports average 6 to 10%. Patient will receive a letter notifying them of these results.
== END ==
PROVIDERS: PCP Student in an Organized Health Care Education/Training Program; Visit Provider Obstetrics & Gynecology
DX: R92.8 Other abnormal and inconclusive findings on diagnostic imaging of breast (principal); R92.331 Mammographic heterogeneous density, right breast
CPT/HCPCS: 76642; 77063; 77067

== ENCOUNTER 2024-10-13 01:26 | Outpatient (CLI) | payer BC, SELFPAY ==
--- NOTE | 2024-10-13 08:33 | DI.US_ITS ---
Exam(s) MG MAMMO DIAGNOSTIC UNI US BREAST RT LIMITED EXAM: MG MAMMO DIAGNOSTIC UNI and U/S breast RT limited CLINICAL HISTORY: 6 month f/u,r92.8,rt breast findings. TECHNIQUE: Craniocaudal and mediolateral oblique Full Field Digital Mammography views of the right b reast with Computer Aided Diagnosis followed by Tomosynthesis and right breast ultrasound. COMPARISON: Comparison is made with prior examinations. FINDINGS: Mammography/Tomosynthesis: Masses/Architectural Distortion: No new masses or areas of architectural distortion are seen. Microcalcifictions: No suspicious pleomorphic-type are seen. Skin Thickening/Nipple Retraction: None. Limited right breast US: Echotexture: Normal appearance of the glandular tissue. Shadowing: No suspicious foci. Cyst: None. Solid lesions: None seen. Ductal dilation: There again seen dilated ducts at the 8 o'clock position of the right breast. There is also a 4 mm by 5 mm hypoechoic nodule at the 8 o'clock position of the right breast 6 cm from the nipple. This is unchanged. There is an adjacent area at the 8 o'clock position of the right breast 6 cm from the nipple which represents normal fibroglandular tissue. No new nodules are seen. IMPRESSION: 1. No definite evidence of malignancy is noted. 2. A six-month follow-up right mammogram and ultrasound is requested for re-evaluation. 3. The findings were discussed with the patient on the date of the examination. BI-RADS Category 3 - 6 month - Probably Benign Finding: Recommend follow-up imaging in 6 months Breast Density - Category C - Heterogeneously dense Breast density Category C or D implies that the patient has dense breast tissue. Dense breast tissue can make it harder to find cancer on a mammogram. Dense breast tissue is also associated with an incr eased risk of breast cancer. This information about the result of the mammogram report was provided to the patient to raise their awareness. Use this report when you speak with the patient about their risks for breast cancer, which includes their family history. At that time, you may recommend additional screening tests (Ultrasoun d or MRI) as these tests may add significant information. A negative radiographic report should not delay biopsy if a dominant or clinically suspicious mass is present. Up to ten percent of cancers are not identified on mammography. A negative report may reinforce clinical impression. Adenosis and dense breasts may obscure an underlying neoplasm. False positive reports average 6 to 10%. Patient will receive a letter notifying them of these results.
== END 2024-10-13 01:46 ==
LOC: DI 01:26
PROVIDERS: PCP Student in an Organized Health Care Education/Training Program; Visit Provider Obstetrics & Gynecology
DX: R92.8 Other abnormal and inconclusive findings on diagnostic imaging of breast (principal); Z12.31 Encounter for screening mammogram for malignant neoplasm of breast
CPT/HCPCS: 76642; 77061; 77065; G0279

== ENCOUNTER 2024-10-14 16:49 | Outpatient (CLI) | payer BC, SELFPAY ==
--- NOTE | 2024-10-14 | DI.RAD_ITS ---
Exam(s) XR CHEST 2V PA LATERAL EXAM: XR CHEST 2V PA LATERAL CLINICAL HISTORY: R05.9 Cough. TECHNIQUE: 2D digital imaging was performed. COMPARISON: CR XR CHEST 2V PA LATERAL from 08/10/2022 FINDINGS: 2 views: Heart size is normal. The mediastinum is not widened. The right lung is clear but there is now an area of nodular infiltrate in the left mid lung. best se en on the frontal view. No associated pleural effusions. no obvious hilar adenopathy. IMPRESSION: Significant left midlung infiltrate. Requires imaging follow-up to resolution. There are no obvious pleural effusions. DATA REPOSITORY: RADIATION DOSE DELIVERED:
--- NOTE | 2024-10-14 16:48 | DI.VRAD_ITS ---
PROCEDURE INFORMATION: Exam: XR Chest Exam date and time: 10/14/2024 4:25 PM Age: 59 years old Clinical indication: Other: Cough TECHNIQUE: Imaging protocol: Radiologic exam of the chest. Views: 2 views. COMPARISON: CR XR CHEST 2V PA LATERAL 08/10/2022 8:14 AM FINDINGS: Lungs: Focal alveolar space infiltrate within the superior segment of the right lower lobe of the lung consistent with acute lobar pneumonia. The pulmonary vasculature is normal. Pleural spaces: There is no evidence of pneumothorax. There are no pleural effusions present. Heart/Mediastinum: The cardiac silhouette is within normal limits. The mediastinum is normal. Bones/joints: The spine, sternum, ribs, and pectoral girdles show no evidence of acute abnormality Soft tissues: There are no soft tissue masses or calcifications. IMPRESSION: Focal alveolar space infiltrate within the superior segment of the right lower lobe of the lung consistent with acute lobar pneumonia. Dictated and Authenticated by: Tal Huynh MD. Ordering:ADELITA JOSEPH MD
== END 2024-10-14 17:09 ==
LOC: DI 16:50
PROVIDERS: PCP Student in an Organized Health Care Education/Training Program; Visit Provider Nurse Practitioner Family
DX: R91.8 Other nonspecific abnormal finding of lung field (principal)
CPT/HCPCS: 71046

== ENCOUNTER 2024-10-27 01:52 | Outpatient (CLI) | payer BC, SELFPAY ==
--- NOTE | 2024-10-27 07:15 | DI.RAD_ITS ---
Exam(s) XR CHEST 2V PA LATERAL EXAM: XR CHEST 2V PA LATERAL CLINICAL HISTORY: re-check lesion for resolution,f/u abnl cxr,cough,r05.9,r93.89 TECHNIQUE: 2D digital imaging was performed. Two views. COMPARISON: CR,XR XR CHEST 2V PA LATERAL from 10/14/2024 FINDINGS: HEART: Normal size. Aorta: Not dilated. PULMONARY VASCULATURE: Normal. MEDIASTINUM: Small hiatal hernia. LUNGS: Clear. Clearing of previously noted left-sided infiltrate. PLEURAL SPACE: No pleural effusion or pneumothorax. BONE:Unremarkable for age. SOFT TISSUES: Unremarkable. IMPRESSION: The left sided infiltrate has cleared. DATA REPOSITORY: RADIATION DOSE DELIVERED:
== END 2024-10-27 02:12 ==
LOC: DI 01:52
PROVIDERS: PCP Student in an Organized Health Care Education/Training Program; Visit Provider Student in an Organized Health Care Education/Training Program
DX: R05.9 Cough, unspecified (principal); R93.89 Abnormal findings on diagnostic imaging of other specified body structures
CPT/HCPCS: 71046

== ENCOUNTER 2025-02-27 14:41 | Outpatient (CLI) | payer BC, SELFPAY ==
[2025-02-27 15:29] LABS: TSH (W/Ref FT4) 1.83 uIU/mL (0.36-3.74)
== END 2025-02-27 14:42 | disposition home or self-care (01) ==
LOC: LBO 14:42
PROVIDERS: PCP Student in an Organized Health Care Education/Training Program; Visit Provider Family Medicine
DX: E03.9 Hypothyroidism, unspecified (principal)
CPT/HCPCS: 36415; 84443

== ENCOUNTER 2025-04-21 02:26 | Outpatient (CLI) | payer BC, SELFPAY ==
--- NOTE | 2025-04-21 13:34 | DI.MAMMO_ITS ---
Exam(s) MAMMO DIAGNOSTIC BI EXAM: MAMMO DIAGNOSTIC BI CLINICAL HISTORY: 6-month f/U RT,RT NODULE,LT SCREENING TECHNIQUE: Mammograms were interpreted according to the usual protocol including computer analysis with CAD system, tomosynthesis and C-view imaging. COMPARISON: Right mammogram and ultrasound of October 21 and exams back to 2014 FINDINGS: The breasts are composed of heterogeneously dense fibroglandular densities, Breast Density category C. There is a stable area of nodularity in the medial right breast. No suspicious masses or suspicious microcalcifications are seen. No skin thickening or abnormal axillary lymph nodes are seen. There has been no significant change from prior exams. IMPRESSION: BI-RADS Category 2 - Negative Mammogram with benign findings. Yearly screening mammography is recommended. Breast Density: Category C - The breasts are heterogeneously dense, which may obscure small masses. Breast density Category C or D implies that the patient has dense breast tissue. Dense breast tissue can make it harder to find cancer on a mammogram. Dense breast tissue is also associated with an increased risk of breast cancer. This information about the result of the mammogram report was provided to the patient to raise their awareness. Use this report when you speak with the patient about their risks for breast cancer, which includes their family history. At that time, you may recommend additional screening tests (Ultrasound or MRI) as these tests may add significant information. A negative radiographic report should not delay biopsy if a dominant or clinically suspicious mass is present. Up to ten percent of cancers are not identified on mammography. A negative report may reinforce clinical impression. Adenosis and dense breasts may obscure an underlying neoplasm. False positive reports average 6 to 10%.
== END 2025-04-21 02:46 ==
PROVIDERS: PCP Student in an Organized Health Care Education/Training Program; Visit Provider Obstetrics & Gynecology
DX: R92.8 Other abnormal and inconclusive findings on diagnostic imaging of breast (principal); Z12.31 Encounter for screening mammogram for malignant neoplasm of breast
CPT/HCPCS: 77062; 77066; G0279

== ENCOUNTER 2025-10-08 07:49 | Outpatient (CLI) | payer BC, SELFPAY ==
[2025-10-08 09:50] LABS: TSH (W/Ref FT4) 5.62 uIU/mL (0.55-4.78)
[2025-10-08 09:51] LABS: Anion Gap 9.1 mmol/L (3-11); BUN 18 mg/dL (9-23); CO2 28.9 mmol/L (20.0-31.0); Calcium 9.0 mg/dL (8.3-10.6); Chloride 107 mmol/L (98-107); Cholesterol 237 mg/dL (<200); Glucose 82 mg/dL (74-106); HDL Cholesterol 65 mg/dL (>40); Potassium 4.5 mmol/L (3.5-5.1); Sodium 145 mmol/L (136-145)
== END 2025-10-08 07:50 | disposition home or self-care (01) ==
LOC: LBO 07:49
PROVIDERS: PCP Nurse Practitioner Family; Visit Provider Nurse Practitioner Family
DX: Z00.00 Encounter for general adult medical examination without abnormal findings (principal); E03.9 Hypothyroidism, unspecified; I10 Essential (primary) hypertension
CPT/HCPCS: 36415; 80048; 80061; 84439; 84443